=== PATIENT | male | born 1995 | race Hispanic/Latino ===

== ENCOUNTER 2016-09-06 04:57 | Emergency (ER) | payer BC ==
[2016-09-06 05:14] VITALS: BP 133/97; PULSE 92; RESP 20; TEMP 99; O2SAT 98
--- NOTE | 2016-09-06 05:33 | ED PDOC ---
HPI: Abdomen Time Seen by Provider: 09/06/16 05:07 Chief Complaint (Nursing): Abdominal Pain Chief Complaint (Provider): Abdominal Pain History Per: Patient History/Exam Limitations: no limitations Onset/Duration Of Symptoms: Hrs (x5 hours) Associated Symptoms: Nausea, Vomiting (Non bloody, non bilious vomiting.), Diarrhea Additional Complaint(s): Wilson Hazel presents to the ED with chief complaints of abdominal pain and cramps. Associated symptoms includes nausea, vomiting, and diarrhea. Patient states he and girlfriend were eating 2 slices of pizza each at midnight , and came to the ED to get his girlfriend checked out but EMS suggested that he get checked out as well due to hime having a history of vagal syncope. Patient reports he didn't pass out and states nausea is under control. Of note, abdominal pain has since resolved, and patient just wants something to drink. PMD: Dr. Jd Cunningham Past Medical History Reviewed: Historical Data, Nursing Documentation, Vital Signs Vital Signs: Last Vital Signs Temp 99.0 F 09/06/16 05:05 Pulse 92 H 09/06/16 05:05 Resp 20 09/06/16 05:05 BP 133/97 H 09/06/16 05:05 Pulse Ox 98 09/06/16 05:49 - Medical History Other PMH: Vagal syncope - Surgical History Surgical History: No Surg Hx - Family History Family History: States: Unknown Family Hx Review of Systems ROS Statement: Except As Marked, All Systems Reviewed And Found Negative Gastrointestinal: Positive for: Nausea, Vomiting (Non bloody, non bilious vomiting.), Abdominal Pain, Diarrhea, Other (abdominal Cramps) Physical Exam - Reviewed Nursing Documentation Reviewed: Yes Vital Signs Reviewed: Yes - Physical Exam Appears: Positive for: Well, Non-toxic, No Acute Distress Head Exam: Positive for: ATRAUMATIC, NORMAL INSPECTION, NORMOCEPHALIC Skin: Positive for: Normal Color Eye Exam: Positive for: Normal appearance, EOMI, PERRL ENT: Positive for: Normal ENT Inspection Neck: Positive for: Normal, Painless ROM, Supple Cardiovascular/Chest: Positive for: Regular Rate, Rhythm. Negative for: Murmur , Tachycardia Respiratory: Positive for: Normal Breath Sounds. Negative for: Wheezing, Respiratory Distress Gastrointestinal/Abdominal: Positive for: Normal Exam, Soft. Negative for: Tenderness Back: Positive for: Normal Inspection Rectal: Positive for: Deferred Extremity: Positive for: Normal ROM Lymphatic: Positive for: Deferred Neurologic/Psych: Positive for: Alert, Oriented - ECG O2 Sat by Pulse Oximetry: 98 (RA) Pulse Ox Interpretation: Normal Medical Decision Making Medical Decision Making: Time: 0507: Initial Impression: 20 year old male with resolved gastroenteritis. 530 Pt. tolerating PO. Walking around ER. Will d/c home. Initial Plan: Scribe Attestation: Documented by Matt Nguyen acting as a scribe for Vasu Sarkar MD. Provider Scribe Attestation: All medical record entries made by the Scribe were at my direction and personally dictated by me. I have reviewed the chart and agree that the record accurately reflects my personal performance of the history, physical exam, medical decision making, and the department course for this patient. I have also personally directed, reviewed, and agree with the discharge instructions and disposition. Disposition - Clinical Impression Clinical Impression: Gastroenteritis - Disposition Referrals: [facility] [Outside] Disposition Time: 05:30 Condition: STABLE Instructions: Gastroenteritis (ED) Forms: [facility] (Telugu)
== END 2016-09-06 06:41 | disposition home or self-care (01) ==
LOC: H.ER 04:57
DX: K52.9 Noninfective gastroenteritis and colitis, unspecified (principal)